=== PATIENT | female | born 1955 | race Caucasian/White ===

== ENCOUNTER 2024-07-31 16:02 | Day surgery (SDC) | payer MEDICARE ==
[2024-07-31] MEDS ORDERED: methylPREDNISolone acetate IM ONE (16:03)
[2024-07-31] MEDS ORDERED: LIDOCAINE HCL 1% 50 MG/5 ML VL IJ ONE (16:03)
[2024-07-31] MEDS ORDERED: Sodium Chloride 0.9(Preservative Free) 10 ML IJ ONE (16:03)
--- NOTE | 2024-07-31 20:41 | XRAY ---
Indication: Lumbar ISAMAR. Intraoperative fluoroscopy provided for 13 seconds. 2 digital spot images submitted for interpretation demonstrates posterior needle tip projecting posterior to inferior L4 segment. Small amount of contrast injected for needle tip placement. Correlate with intraoperative findings/report.
--- NOTE | 2024-07-31 20:45 | XRAY ---
13 seconds of fluoroscopy were used in surgery for a lumbar ISAMAR.
== END 2024-07-31 17:54 | disposition home or self-care (01) ==
LOC: SDC-PAIN 16:02
PROVIDERS: ATTEND Psychiatry & Neurology Pain Medicine
DX: M54.16 Radiculopathy, lumbar region (principal)
CPT/HCPCS: 62323; 72100; 77003; J1010; Q9966

== ENCOUNTER 2025-02-18 11:47 | Day surgery (SDC) | payer MEDICARE ==
[2025-02-18] MEDS ORDERED: Sensorcaine 0.25% 10 ML IJ ONE (11:48)
[2025-02-18] MEDS ORDERED: propofoL IV ONE (13:46)
[2025-02-18] MEDS ORDERED: Lactated Ringers 1,000 ML IV ONE (15:19)
--- NOTE | 2025-02-18 16:32 | XRAY ---
Indication: Bilateral L4-S1 MBB. Intraoperative fluoroscopy provided for 12 seconds. Single digital spot image submitted for interpretation demonstrates posterior needle tips projecting over expected left and right L4-S1 nerve roots. Correlate with intraoperative findings/report.
--- NOTE | 2025-02-18 16:39 | XRAY ---
12 seconds of fluoroscopy used in surgery for a bilateral L4-S1 MBB.
== END 2025-02-18 14:13 | disposition home or self-care (01) ==
LOC: SDC-PAIN 11:47
PROVIDERS: ATTEND Psychiatry & Neurology Pain Medicine
DX: M47.817 Spondylosis without myelopathy or radiculopathy, lumbosacral region (principal); E11.9 Type 2 diabetes mellitus without complications